=== PATIENT | female | born 1980 | race Caucasian/White ===

== ENCOUNTER 2016-07-20 19:07 | Emergency (ER) | payer OTHER ==
[~2016-07-20] VITALS: Ht 160 cm; Wt 61.3 kg
[~2016-07-20 19:07] MED LIST: BACTRIM,SEPT1 TABLET PO; BENZONATATE200 MG PO; BUSPAR5 MG PO; CYCLOBENZAPRINE10 MG PO; DICLOFENAC SOD100 MG PO; IPRATROPIUM BRO30 ML BOTH NARES; LEXAPRO10 MG PO; NAPROSYN500 MG PO; PERCOCET 5/31 TABLET PO; PRINIVIL20 MG PO; SPRINTEC1 EACH PO; TYLENOL EXTRA500 MG PO
[2016-07-20] MEDS ORDERED: NAPROSYN500 MG PO (21:24)
[2016-07-20 21:50] VITALS: BP 154/102
== END 2016-07-20 22:17 | disposition home or self-care (01) ==
LOC: EME 19:07
PROC: 2W3RX1Z Immobilization of Left Lower Leg using Splint (ICD-10-PCS; principal; 2016-07-20)
DX: S93.402A Sprain of unspecified ligament of left ankle, initial encounter (principal); W00.1XXA Fall from stairs and steps due to ice and snow, initial encounter; F17.200 Nicotine dependence, unspecified, uncomplicated
CPT/HCPCS: 73610; 73630; 99281; 99284

== ENCOUNTER 2016-12-31 16:02 | Emergency (ER) | payer OTHER ==
[~2016-12-31] VITALS: Ht 160 cm; Wt 65.0 kg
[2016-12-31 18:05] LABS: EOSINOPHIL (%) 2.3 % (0-5); EOSINOPHIL COUNT 0.1 K/uL (0-0.3); HEMATOCRIT 36.9 % (36.0-46.0); IMMATURE GRANULOCYTE (%) 0.3 % (0.0-0.7); INSTRUMENT ABS NEUTROPHIL CT 3.2 K/uL; LYMPHOCYTE COUNT 2.4 K/uL (1.0-2.8); MCH 29.8 PG (29.0-34.0); MCHC 32.2 G/DL (30.0-36.0); MCV 92.5 FL (83-99); MEAN PLAT.VOLUME 9.3 uM^3 (9.5-12.4); MONOCYTE (%) 7.1 % (3-12); MONOCYTE COUNT 0.4 K/uL (0-0.8); NEUTROPHIL (%) 50.9 % (45-76); NEUTROPHIL COUNT 3.2 K/uL (1.8-6.4); PLATELET COUNT 259 K/uL (156-360); RBC DIS.WIDTH-CV 12.9 % (11.8-14.6); RBC DIS.WIDTH-SD 43.8 % (39-53); RED BLOOD COUNT 3.99 M/uL (3.80-5.20); WHITE BLOOD COUNT 6.2 K/uL (4.1-10.2)
[2016-12-31 18:17] LABS: CHLORIDE 108 mEq/L (99-109); POTASSIUM 3.7 mEq/L (3.7-5.4); SODIUM 142 mEq/L (136-147)
[2016-12-31 18:19] LABS: GLUCOSE 90 mg/dL (70-99)
[2016-12-31 18:20] LABS: ANION GAP 11 MEQ/L (2-14)
[2016-12-31 18:23] LABS: GFR ESTIMATE (CALCULATED) > 59 mL/min/
[2016-12-31 18:24] LABS: UREA NITROGEN (BUN) 7 mg/dL (9-23)
[2016-12-31] MEDS ORDERED: CLONIDINE HCL0.1 MG PO (20:11)
[2016-12-31 20:21] VITALS: BP 118/76
== END 2016-12-31 20:22 | disposition home or self-care (01) ==
LOC: EME 16:02
PROVIDERS: Emergency Medicine
DX: I10 Essential (primary) hypertension (principal); F17.200 Nicotine dependence, unspecified, uncomplicated
CPT/HCPCS: 80048; 85025; 93005; 99281; 99285

== ENCOUNTER → 2017-06-24 | Outpatient (CLI) | payer OTHER ==
[~2017-06-24] MED LIST changes: +CLONIDINE HCL0.1 MG PO
== END | disposition home or self-care (01) ==
LOC: EKG 13:47
DX: I47.1 Supraventricular tachycardia (principal)
CPT/HCPCS: 93306